=== PATIENT | female | born 1990 | race Caucasian/White ===

== ENCOUNTER 2017-06-29 17:02 | Emergency (ER) | payer MEDICAID ==
[2017-06-29 17:20] VITALS: BP 146/98
[2017-06-29] MEDS ORDERED: Sodium Chloride 0.9% 10 ML Syringe FLUSH PRN ×2 (17:39→19:20)
[2017-06-29] MEDS ORDERED: Ondansetron 4 MG/2 ML SDV IVPUSH ONE (17:40)
[2017-06-29] MEDS ORDERED: Ketorolac 30 MG/ML SDV IVPUSH ONE (17:40)
--- NOTE | 2017-06-29 17:43 | EDM.PDOC ---
ED HPI GENERAL MEDICAL PROBLEM - General Chief Complaint: Gastrointestinal Problem Stated Complaint: RT SIDE ABD PAIN UNDER RIBS Time Seen by Provider: 06/29/17 17:30 Source of Information: Reports: Patient History Limitations: Reports: No Limitations - History of Present Illness INITIAL COMMENTS - FREE TEXT/NARRATIVE: Magui is an otherwise healthy 27-year-old female who presents to the emergency department today with complaints of right upper quadrant pain that has been progressive over the last few days. Patient reports the pain increases dramatically after she gets done eating, she does endorse nausea but denies any vomiting. Patient denies any diarrhea or hematochezia. Patient denies any fever but does report feeling mildly lightheaded at times patient has had her tubes tied as well as a ablation and does not get her period. Patient denies any dysuria or blood in urine. Onset: Gradual Duration: Day(s): (5) - Related Data Allergies Allergy/AdvReac Type Severity Reaction Status Date / Time No Known Allergies Allergy Verified 06/29/17 17:23 Home Meds: Home Meds NK [No Known Home Meds] 06/29/17 [History] Past Medical History Immunologic History: Reports: Other (See Below) Other Immunologic History: hep c - Past Surgical History Female Surgical History: Reports: Tubal Ligation Social & Family History - Tobacco Use Smoking Status *Q: Current Every Day Smoker Years of Tobacco use: 4 Packs/Tins Daily: 0.5 ED ROS GENERAL - Review of Systems Review Of Systems: ROS reveals no pertinent complaints other than HPI. ED EXAM, GI/ABD - Physical Exam Exam: See Below Exam Limited By: No Limitations General Appearance: Alert, WD/WN, Mild Distress (Secondary to pain) Throat/Mouth: Normal Oropharynx Head: Atraumatic Neck: Normal Inspection Respiratory/Chest: No Respiratory Distress, Lungs Clear, Normal Breath Sounds Cardiovascular: Normal Peripheral Pulses, Regular Rate, Rhythm, No Murmur GI/Abdominal Exam: Normal Bowel Sounds, Soft, Tender (Right upper quadrant positive Heaton sign) Back Exam: Normal Inspection Extremities: Normal Inspection, Normal Range of Motion, Non-Tender Neurological: Alert, Oriented, CN II-XII Intact Psychiatric: Normal Affect, Normal Mood Skin Exam: Warm, Dry, Intact Lymphatic: No Adenopathy Course - Vital Signs Last Recorded V/S: Last Vital Signs Temp 36.1 C 08/12/17 17:32 Pulse 93 06/29/17 17:32 Resp 14 06/29/17 17:32 BP 146/98 H 06/29/17 17:32 Pulse Ox 99 06/29/17 17:32 Magui is an otherwise healthy 27-year-old female who presents to the emergency Department today with complaints of right upper quadrant pain that has been progressive for the last week, becomes worse any time she eats. Patient denies any trauma or injury. Patient denies any fever or chills, she does endorse nausea and near vomiting. Please refer to history of present illness and focused exam. Concerns on exam with positive Heaton sign for an acute cholecystitis. Peripheral IV was established and patient was given IV Zofran and Dilaudid for pain with improvement in her symptoms. Ultrasound was obtained of gallbladder and is negative. CT scan was obtained and is also negative. Blood work today was reassuring, urinalysis is negative for infection. I do not have a clear etiology for patient's pain today but given hx and exam still feel her gallbladder could be playing a role. I discussed findings of today's exam and test results with patient, I feel she is stable to be discharged home, she is feeling better here, I will send her home with Zofran for nausea and [place] for pain, encouraged her to stick to a low -fat diet and follow up with primary care in the next week. If patient continues to have symptoms she likely will need an outpatient HIDA scan to further evaluate her source of pain. Reasons to return to the emergency department were discussed in detail, patient is agreeable to plan of care and was discharged in stable condition with her mom driving. - Orders/Labs/Meds Orders: Active Orders 24 hr Category Date Time Status Peripheral IV Care [RC] . DIRECTED Care 06/29/17 17:39 Active Abdomen Ltd [US] Stat Exams 06/29/17 17:40 Taken Abdomen Pelvis w Cont [CT] Stat Exams 06/29/17 19:16 Taken HYDROmorphone [Dilaudid] Med 06/29/17 20:09 Once 0.5 mg IVPUSH ONETIME ONE Sodium Chloride 0.9% [Saline Flush] Med 06/29/17 17:39 Active 10 ml FLUSH ASDIRECTED PRN Peripheral IV Insertion Adult [OM.PC] Routine Oth 06/29/17 17:39 Ordered Medication Orders Sodium Chloride (Saline Flush) 10 ml FLUSH ASDIRECTED PRN PRN Reason: Keep Vein Open Last Admin: 06/29/17 18:02 Dose: 10 ml Labs: Laboratory Tests 06/29/17 06/29/17 06/29/17 Range/Units 17:51 17:51 18:08 WBC 7.1 (4.5-11.0) K/uL RBC 4.76 (3.30-5.50) M/uL Hgb 15.4 H (12.0-15.0) g/dL Hct 43.2 (36.0-48.0) % MCV 91 (80-98) fL MCH 32 H (27-31) pg MCHC 36 (32-36) % Plt Count 227 (150-400) K/uL Neut % (Auto) 58 (36-66) % Lymph % (Auto) 29 (24-44) % [place] % (Auto) 8 H (2-6) % Eos % (Auto) 3 (2-4) % Baso % (Auto) 2 H (0-1) % Sodium 142 (140-148) mmol/L Potassium 4.2 (3.6-5.2) mmol/L Chloride 106 (100-108) mmol/L Carbon Dioxide 31 (21-32) mmol/L Anion Gap 4.6 L (5.0-14.0) mmol/L BUN 18 (7-18) mg/dL Creatinine 0.9 (0.6-1.0) mg/dL Est Cr Clr Drug Dosing 89.69 mL/min Estimated GFR (MDRD) > 60 (>60) Glucose 104 (74-106) mg/dL Calcium 8.5 (8.5-10.1) mg/dL Total Bilirubin 0.5 (0.2-1.0) mg/dL AST 37 (15-37) U/L ALT 66 (12-78) U/L Alkaline Phosphatase 56 (46-116) U/L Total Protein 7.7 (6.4-8.2) g/dL Albumin 3.8 (3.4-5.0) g/dL Globulin 3.9 H (2.3-3.5) g/dL Albumin/Globulin Ratio 1.0 L (1.2-2.2) Lipase 126 (73-393) U/L Urine Color Yellow Urine Appearance Clear Urine pH 5.0 (4.5-8.0) Ur Specific [place] 1.020 (1.008-1.030) Urine Protein Negative (NEGATIVE) mg/dL Urine Glucose (UA) Normal (NEGATIVE) mg/dL Urine Ketones Negative (NEGATIVE) mg/dL Urine Occult Blood Negative (NEGATIVE) Urine Nitrite Negative (NEGATIVE) Urine Bilirubin Negative (NEGATIVE) Urine Urobilinogen Normal (NORMAL) mg/dL Ur Leukocyte Esterase Negative (NEGATIVE) Urine RBC 0-5 (0-5) Urine WBC 0-5 (0-5) Ur Epithelial Cells Moderate Amorphous Sediment Few Urine Bacteria Few Urine Mucus Few Meds: Medications Generic Name Dose Route Start Last Admin Trade Name Freq PRN Reason Stop Dose Admin Sodium Chloride 10 ml 06/29/17 17:39 06/29/17 18:02 Saline Flush FLUSH 10 ml ASDIRECTED PRN Administration Keep Vein Open Discontinued Medications Generic Name Dose Route Start Last Admin Trade Name Freq PRN Reason Stop Dose Admin Hydromorphone HCl 0.5 mg 06/29/17 17:40 06/29/17 18:02 Dilaudid IVPUSH 06/29/17 17:41 0.5 mg ONETIME ONE Administration Sodium Chloride 70 mls @ 3 mls/sec 06/29/17 19:20 06/29/17 19:31 Normal Saline IV 06/29/17 19:21 3 mls/sec ASDIRECTED ONE Administration Iopamidol 100 ml 06/29/17 19:20 06/29/17 19:30 Isovue-300 (61%) IV 06/29/17 19:21 100 ml . DIRECTED PRN Administration RADIOLOGY EXAM Ketorolac Tromethamine 30 mg 06/29/17 17:40 06/29/17 18:01 Toradol IVPUSH 06/29/17 17:41 30 mg ONETIME ONE Administration Ondansetron HCl 4 mg 06/29/17 17:40 06/29/17 18:01 Zofran IVPUSH 06/29/17 17:41 4 mg ONETIME ONE Administration Sodium Chloride 10 ml 06/29/17 19:20 06/29/17 19:30 Saline Flush FLUSH 06/29/17 19:21 10 ml . DIRECTED PRN Administration [id number] EXAM Departure - Departure Time of Disposition: 20:30 Disposition: Home, Self-Care 01 Condition: Good Clinical Impression: Right upper quadrant abdominal pain - Discharge Information Instructions: Abdominal Pain, Adult, [id number] Forms: ED Department Discharge Additional Instructions: Magui, You can take ibuprofen for pain, 600 mg every 6 hours. I have prescribed you [place] which is a narcotic for severe pain, do not drive if you take this. Please follow up in clinic this week, you may need a HIDA scan if pain continues. Stick to a low fat diet for now. If you develop any worsening symptoms/concerns please return to the ED. - My Orders Last 24 Hours: My Active Orders 06/29/17 17:39 Peripheral IV Care [RC] . DIRECTED Sodium Chloride 0.9% [Saline Flush] 10 ml FLUSH ASDIRECTED PRN Peripheral IV Insertion Adult [OM.PC] Routine 06/29/17 17:40 Abdomen Ltd [US] Stat 06/29/17 19:16 Abdomen Pelvis w Cont [CT] Stat 06/29/17 20:09 HYDROmorphone [Dilaudid] 0.5 mg IVPUSH ONETIME ONE - Assessment/Plan Last 24 Hours: My Active Orders 06/29/17 17:39 Peripheral IV Care [RC] . DIRECTED Sodium Chloride 0.9% [Saline Flush] 10 ml FLUSH ASDIRECTED PRN Peripheral IV Insertion Adult [OM.PC] Routine 06/29/17 17:40 Abdomen Ltd [US] Stat 06/29/17 19:16 Abdomen Pelvis w Cont [CT] Stat 06/29/17 20:09 HYDROmorphone [Dilaudid] 0.5 mg IVPUSH ONETIME ONE
[2017-06-29] MEDS: HYDROmorphone 1 MG/ML Syringe IVPUSH ONE ×2 (18:02→20:21)
[2017-06-29] MEDS ORDERED: Iopamidol 612 MG/ML 100 ML Bottle IV PRN (19:20)
[2017-06-29] MEDS ORDERED: HYDROmorphone 0.5 MG/0.5 ML Syringe IVPUSH ONE (20:09)
--- NOTE | 2017-07-01 11:59 | US ---
Abdomen Ltd INDICATION: RUQ pain after eating COMPARISON: None FINDINGS: Liver unremarkable in appearance. No gallstones or gallbladder wall thickening. No biliary distention. Abdominal aorta and inferior vena cava are unremarkable where visualized. Visualized portions of the pancreas are unremarkable. Right kidney unremarkable. No calculi or hydronephrosis. No ascites seen in the right upper quadrant. IMPRESSION: Negative ultrasound right upper quadrant.
== END 2017-06-29 20:23 | disposition home or self-care (01) ==
LOC: JP.ED 17:02
DX: R10.11 Right upper quadrant pain (principal); F17.210 Nicotine dependence, cigarettes, uncomplicated; Z98.51 Tubal ligation status
CPT/HCPCS: 36415; 74177; 76705; 80053; 81001; 83690; 85025; 96374; 96375; 99284; J1170; J1885; J2405; J7030; J7050; Q9967

== ENCOUNTER 2018-12-10 17:10 | Emergency (ER) | payer MEDICAID ==
[2018-12-10 18:16] VITALS: BP 122/85
[2018-12-10] MEDS ORDERED: Phenazopyridine 95 MG Tab PO ONE (18:56)
[2018-12-10] MEDS ORDERED: HYDROmorphone 0.5 MG/0.5 ML Syringe IVPUSH ONE (18:57)
[2018-12-10] MEDS ORDERED: Ondansetron 4 MG/2 ML SDV IVPUSH ONE (18:57)
[2018-12-10] MEDS ORDERED: Sodium Chloride 0.9% 1,000 ML IV SCH (19:00)
--- NOTE | 2018-12-10 20:09 | EDM.PDOC ---
ED HPI GENERAL MEDICAL PROBLEM - General Chief Complaint: Genitourinary Problem Stated Complaint: RIGHT SIDE PAIN,BLOOD IN URINE Time Seen by Provider: 12/10/18 20:05 Source of Information: Reports: Patient, Family History Limitations: Reports: No Limitations - History of Present Illness INITIAL COMMENTS - FREE TEXT/NARRATIVE: pt has acute pain in the rt flank area. When she voided once it looked like there was blood She has a constant urge to void. Her pain is very severe at times. She does nt have a history of a stone. Onset: Today, Gradual Duration: Hour(s): Location: Reports: Abdomen, Other ( rt flank pain) Quality: Reports: Burning, Sharp Associated Symptoms: Reports: Nausea/Vomiting, Other (pain in the rt flank) Lower Abdominal Pain Score (Numeric/FACES): 9 - Related Data Allergies Allergy/AdvReac Type Severity Reaction Status Date / Time No Known Allergies Allergy Verified 06/29/17 17:23 Home Meds: Home Meds NK [No Known Home Meds] 06/29/17 [History] Past Medical History HEENT History: Reports: Impaired Vision Genitourinary History: Reports: UTI, Recurrent Immunologic History: Reports: Other (See Below) Other Immunologic History: hep c - Past Surgical History Female Surgical History: Reports: Tubal Ligation Social & Family History - Tobacco Use Smoking Status *Q: Never Smoker - Caffeine Use Caffeine Use: Reports: Coffee - Recreational Drug Use Recreational Drug Use: Yes Drug Use in Last 12 Months: No ED ROS GENERAL - Review of Systems Review Of Systems: See Below Constitutional: Reports: No Symptoms HEENT: Reports: No Symptoms Respiratory: Reports: No Symptoms Cardiovascular: Reports: No Symptoms Endocrine: Reports: No Symptoms GI/Abdominal: Reports: Abdominal Pain, Other ( rt flank pain) : Reports: Dysuria, Flank Pain, Frequency Musculoskeletal: Reports: No Symptoms Skin: Reports: No Symptoms Neurological: Reports: No Symptoms ED EXAM, GI/ABD - Physical Exam Exam: See Below Text/Narrative:: pt arrived having increased pain in the rt flank and she is having dysuria. Exam Limited By: No Limitations General Appearance: Alert, Anxious, Moderate Distress Ears: Normal TMs Nose: Normal Inspection Throat/Mouth: Normal Inspection Head: Atraumatic Neck: Normal Inspection Respiratory/Chest: No Respiratory Distress Cardiovascular: Regular Rate, Rhythm GI/Abdominal Exam: Other (pt has definite flank tenderness) (Female) Exam: Deferred Rectal (Female) Exam: Deferred Back Exam: Normal Inspection Extremities: Normal Inspection Neurological: Alert, Oriented Psychiatric: Anxious Course - Vital Signs Last Recorded V/S: Last Vital Signs Temp 36.8 C 12/10/18 18:18 Pulse 79 12/10/18 18:18 Resp 14 12/10/18 18:18 BP 122/85 12/10/18 18:18 Pulse Ox 96 12/10/18 18:18 - Orders/Labs/Meds Orders: Active Orders 24 hr Category Date Time Status Dietary Supplements [RC] BIDMEALS Care 12/10/18 23:02 Ordered Abdomen Pelvis wo Cont [CT] Stat Exams 12/10/18 20:03 Taken CULTURE URINE [RM] Stat Lab 12/10/18 22:55 Ordered Sodium Chloride 0.9% [Normal Saline] 1,000 ml Med 12/10/18 19:00 Active IV ASDIRECTED cefTRIAXone [Rocephin] 1 gm Med 12/10/18 23:02 Ordered Sodium Chloride 0.9% [Normal Saline] 50 ml IV ONETIME Medication Orders Sodium Chloride (Normal Saline) 1,000 mls @ 999 mls/hr IV ASDIRECTED LIBRETY Last Admin: 12/10/18 20:34 Dose: 999 mls/hr Ceftriaxone Sodium 1 gm/ (Sodium Chloride) 50 mls @ 100 mls/hr IV ONETIME ONE Stop: 12/10/18 23:31 Labs: Laboratory Tests 12/10/18 12/10/18 12/10/18 Range/Units 18:27 18:57 18:57 WBC 5.5 (4.5-11.0) K/uL RBC 4.57 (3.30-5.50) M/uL Hgb 14.3 (12.0-15.0) g/dL Hct 41.8 (36.0-48.0) % MCV 92 (80-98) fL MCH 31 (27-31) pg MCHC 34 (32-36) % Plt Count 218 (150-400) K/uL Neut % (Auto) 45 (36-66) % Lymph % (Auto) 42 (24-44) % [place] % (Auto) 10 H (2-6) % Eos % (Auto) 3 (2-4) % Baso % (Auto) 1 (0-1) % Sodium 140 (140-148) mmol/L Potassium 3.8 (3.6-5.2) mmol/L Chloride 103 (100-108) mmol/L Carbon Dioxide 28 (21-32) mmol/L Anion Gap 9.1 (5.0-14.0) mmol/L BUN 8 D (7-18) mg/dL Creatinine 0.8 (0.6-1.0) mg/dL Est Cr Clr Drug Dosing 99.99 mL/min Estimated GFR (MDRD) > 60 (>60) Glucose 86 (74-106) mg/dL Calcium 9.1 (8.5-10.1) mg/dL Total Bilirubin 0.6 (0.2-1.0) mg/dL AST 37 (15-37) U/L ALT 66 (12-78) U/L Alkaline Phosphatase 54 (46-116) U/L C-Reactive Protein (0.0-0.3) mg/dL Total Protein 7.3 (6.4-8.2) g/dL Albumin 3.6 (3.4-5.0) g/dL Globulin 3.7 H (2.3-3.5) g/dL Albumin/Globulin Ratio 1.0 L (1.2-2.2) Urine Color Yellow Urine Appearance Clear Urine pH 7.0 (4.5-8.0) Ur Specific [place] 1.010 (1.008-1.030) Urine Protein Negative (NEGATIVE) mg/dL Urine Glucose (UA) Normal (NEGATIVE) mg/dL Urine Ketones Negative (NEGATIVE) mg/dL Urine Occult Blood Negative (NEGATIVE) Urine Nitrite Negative (NEGATIVE) Urine Bilirubin Negative (NEGATIVE) Urine Urobilinogen Normal (NORMAL) mg/dL Ur Leukocyte Esterase Negative (NEGATIVE) Urine RBC Not seen (0-5) Urine WBC 0-5 (0-5) Ur Epithelial Cells Rare Amorphous Sediment Not seen Urine Bacteria Rare Urine Mucus Not seen 12/10/18 Range/Units 19:00 WBC (4.5-11.0) K/uL RBC (3.30-5.50) M/uL Hgb (12.0-15.0) g/dL Hct (36.0-48.0) % MCV (80-98) fL MCH (27-31) pg MCHC (32-36) % Plt Count (150-400) K/uL Neut % (Auto) (36-66) % Lymph % (Auto) (24-44) % [place] % (Auto) (2-6) % Eos % (Auto) (2-4) % Baso % (Auto) (0-1) % Sodium (140-148) mmol/L Potassium (3.6-5.2) mmol/L Chloride (100-108) mmol/L Carbon Dioxide (21-32) mmol/L Anion Gap (5.0-14.0) mmol/L BUN (7-18) mg/dL Creatinine (0.6-1.0) mg/dL Est Cr Clr Drug Dosing mL/min Estimated GFR (MDRD) (>60) Glucose (74-106) mg/dL Calcium (8.5-10.1) mg/dL Total Bilirubin (0.2-1.0) mg/dL AST (15-37) U/L ALT (12-78) U/L Alkaline Phosphatase (46-116) U/L C-Reactive Protein 0.08 (0.0-0.3) mg/dL Total Protein (6.4-8.2) g/dL Albumin (3.4-5.0) g/dL Globulin (2.3-3.5) g/dL Albumin/Globulin Ratio (1.2-2.2) Urine Color Urine Appearance Urine pH (4.5-8.0) Ur Specific [place] (1.008-1.030) Urine Protein (NEGATIVE) mg/dL Urine Glucose (UA) (NEGATIVE) mg/dL Urine Ketones (NEGATIVE) mg/dL Urine Occult Blood (NEGATIVE) Urine Nitrite (NEGATIVE) Urine Bilirubin (NEGATIVE) Urine Urobilinogen (NORMAL) mg/dL Ur Leukocyte Esterase (NEGATIVE) Urine RBC (0-5) Urine WBC (0-5) Ur Epithelial Cells Amorphous Sediment Urine Bacteria Urine Mucus Meds: Medications Generic Name Dose Route Start Last Admin Trade Name Freq PRN Reason Stop Dose Admin Sodium Chloride 1,000 mls @ 999 mls/hr 12/10/18 19:00 12/10/18 20:34 Normal Saline IV 999 mls/hr ASDIRECTED LIBERTY Administration Ceftriaxone Sodium 1 gm/ 50 mls @ 100 mls/hr 12/10/18 23:02 Sodium Chloride IV 01/23/19 23:31 ONETIME ONE Discontinued Medications Generic Name Dose Route Start Last Admin Trade Name Bg PRN Reason Stop Dose Admin Hydromorphone HCl 0.5 mg 12/10/18 18:57 12/10/18 20:34 Dilaudid IVPUSH 12/10/18 18:58 0.5 mg ONETIME ONE Administration Ketorolac Tromethamine 30 mg 12/10/18 23:01 Toradol IVPUSH 12/10/18 23:02 ONETIME ONE Magnesium Citrate 296 ml 12/10/18 23:08 Citrate Of Magnesia PO 12/10/18 23:09 ONETIME ONE Ondansetron HCl 4 mg 12/10/18 18:57 12/10/18 20:34 Zofran IVPUSH 12/10/18 18:58 4 mg ONETIME ONE Administration Phenazopyridine HCl 190 mg 12/10/18 18:56 12/10/18 20:34 Urinary Pain Relief PO 12/10/18 18:57 190 mg ONETIME ONE Administration - Re-Assessments/Exams Free Text/Narrative Re-Assessment/Exam: 12/10/18 23:11 iv fluids were given to the pt. A urine was obtained which did not reveal alot of bacteria or wbcs. She continued to be uncomfortable and she was given pyridium and dilaudid which helped. A decision was made to obtaine a cat scan of the abdoman which was neg except she had a thickened bladder wall which could be from a cystitis. Her urine was cultured. She also looked like she was very constipated. She did have a stool today. She was given pyrridium and rocephen iv. Departure - Departure Time of Disposition: 23:02 Disposition: Home, Self-Care 01 Condition: Fair Clinical Impression: UTI (urinary tract infection), Constipation - Discharge Information Referrals: PCP,None [Primary Care Provider] - Forms: ED Department Discharge Care Plan Goals: CONTINUE TO PUSH FLUIDS, CIPRO 500MG BID FOR 1 WEEK, PYRIDIUM 200MG TID FOR THE NEXT 2 DAYS, MAG CITRATE 1 BOTTLE NOW, TORODOL 10MG Q6H PRN FOR PAIN. - My Orders Last 24 Hours: My Active Orders 12/10/18 19:00 Sodium Chloride 0.9% [Normal Saline] 1,000 ml IV ASDIRECTED 12/10/18 20:03 Abdomen Pelvis wo Cont [CT] Stat 12/10/18 22:55 CULTURE URINE [RM] Stat 12/10/18 23:02 Dietary Supplements [RC] BIDMEALS cefTRIAXone [Rocephin] 1 gm Sodium Chloride 0.9% [Normal Saline] 50 ml IV ONETIME - Assessment/Plan Last 24 Hours: My Active Orders 12/10/18 19:00 Sodium Chloride 0.9% [Normal Saline] 1,000 ml IV ASDIRECTED 12/10/18 20:03 Abdomen Pelvis wo Cont [CT] Stat 12/10/18 22:55 CULTURE URINE [RM] Stat 12/10/18 23:02 Dietary Supplements [RC] BIDMEALS cefTRIAXone [Rocephin] 1 gm Sodium Chloride 0.9% [Normal Saline] 50 ml IV ONETIME
[2018-12-10] MEDS ORDERED: Ketorolac 30 MG/ML SDV IVPUSH ONE (23:01)
[2018-12-10] MEDS ORDERED: cefTRIAXone 1 GM in Sodium Chloride 0.9% 50 ML IV ONE (23:02)
[2018-12-10] MEDS ORDERED: Magnesium Citrate Solution 296 ML Bottle PO ONE (23:08)
== END 2018-12-10 23:47 | disposition home or self-care (01) ==
LOC: JP.ED 17:10
DX: N39.0 Urinary tract infection, site not specified (principal); K59.00 Constipation, unspecified
CPT/HCPCS: 36415; 74176; 80053; 81001; 85025; 86140; 87086; 96361; 96365; 96375; 99284; A9270; J0696; J1170; J1885; J2405; J7030; J7050

== ENCOUNTER 2019-08-18 18:26 | Emergency (ER) | payer MEDICAID ==
[2019-08-18 18:51] VITALS: BP 136/75; PULSE 84
[2019-08-18] MEDS ORDERED: Ondansetron 4 MG Tab.DIS PO ONE (19:30)
[2019-08-18] MEDS ORDERED: HYDROmorphone 1 MG/ML Syringe IM ONE ×2 (19:30→21:18)
[2019-08-18] MEDS ORDERED: Bupivacaine 0.25% 10 ML SDV INJECT ONE (20:27)
[2019-08-18] MEDS ORDERED: Bacitracin Oint 1 GM U/D Packet TOP ONE (22:43)
--- NOTE | 2019-08-18 22:49 | EDM.PDOC ---
ED HPI GENERAL MEDICAL PROBLEM - General Chief Complaint: Laceration Stated Complaint: LACERATION TO LEFT ARM Time Seen by Provider: 08/18/19 19:24 Source of Information: Reports: Patient History Limitations: Reports: No Limitations - History of Present Illness INITIAL COMMENTS - FREE TEXT/NARRATIVE: This lady was washing dishes and she dropped a glass or something which broke and lacerated her left wrist. This happened just prior to arrival. 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: Musculoskeletal History: Reports: Fracture Immunologic History: Reports: Other (See Below) Other Immunologic History: hep c - Infectious Disease History Infectious Disease History: Reports: Chicken Pox, Hepatitis C - Past Surgical History Female Surgical History: Reports: Tubal Ligation Social & Family History - Tobacco Use Smoking Status *Q: Current Every Day Smoker Years of Tobacco use: 10 Packs/Tins Daily: 1 - Caffeine Use Caffeine Use: Reports: Coffee - Recreational Drug Use Recreational Drug Use: No ED ROS GENERAL - Review of Systems Review Of Systems: ROS reveals no pertinent complaints other than HPI. ED EXAM, SKIN/RASH Exam: See Below Exam Limited By: No Limitations General Appearance: Alert, WD/WN, Mild Distress Extremities: Other (There is a laceration to the left wrist it's the anterior or palmar surface the ulnar half there is a laceration it's approximately 3 cm long it extends from the distal forearm distally and in the ulnar direction towards the crease of the wrist. It appears to be superficial however it's a actual superficial slicing type of laceration so it goes in the lateral or towards the thumb side of the wrist but never getting more than about 5 mm deep. So it's a single laceration with a flap. This does not penetrate down to any tendons or nerves or arteries. I did do an Alexandru's test prior to a full exam and is negative for any arterial compromise. There is full range of motion of the wrist and she does have good feeling to the fourth and fifth digits. There is some loss of sensation to the index and middle fingers but that is chronic due to previous injury) Course - Vital Signs Last Recorded V/S: Last Vital Signs Temp 36.4 C 08/18/19 19:14 Pulse 84 08/18/19 19:14 Resp 16 08/18/19 19:14 BP 136/75 08/18/19 19:14 Pulse Ox 97 08/18/19 19:14 - Orders/Labs/Meds Orders: Active Orders 24 hr Category Date Time Status Bacitracin [Bacitracin Oint 1 GM] Med 08/18/19 22:43 Once 1 dose TOP ONETIME ONE Meds: Medications Discontinued Medications Generic Name Dose Route Start Last Admin Trade Name Freq PRN Reason Stop Dose Admin Bupivacaine HCl 10 ml 08/18/19 20:27 08/18/19 20:38 Sensorcaine-Mpf 0.25% INJECT 08/18/19 20:28 10 ml ONETIME ONE Administration Hydromorphone HCl 1 mg 08/18/19 19:30 08/18/19 19:54 Dilaudid IM 08/18/19 19:31 1 mg ONETIME ONE Administration Hydromorphone HCl 1 mg 08/18/19 21:18 08/18/19 22:13 Dilaudid IM 08/18/19 21:19 1 mg ONETIME ONE Administration Ondansetron HCl 4 mg 08/18/19 19:30 08/18/19 19:54 Zofran Odt PO 08/18/19 19:31 4 mg ONETIME ONE Administration - Re-Assessments/Exams Free Text/Narrative Re-Assessment/Exam: 08/18/19 22:47 Procedure: Laceration repair. This patient did receive 2 injections of Dilaudid 1 mg widely apart and 1 mg of Ativan as well as 4 mg of Zofran. I did convince her to let me give her some subcutaneous bupivacaine and that was injected a total of about 7 mL and seems to have worked locally. The surrounding tissues were then scrubbed with a saline soaked sponge the wound was gently scrubbed with saline and lavaged. The flap was lifted and the area under the flap was inspected and lavaged with saline. It was inspected in a bloodless field and there is no damage to underlying structures. The wound was then closed in a simple running 5-0 nylon stitch getting a good cosmetic result. Bacitracin ointment was followed by a simple Telfa and gauze dressing. 08/18/19 22:50 Total length of laceration sutured was 3 cm Departure - Departure Time of Disposition: 22:49 Disposition: Home, Self-Care 01 Condition: Fair Clinical Impression: Laceration of wrist, left - Discharge Information Referrals: PCP,None [Primary Care Provider] - Additional Instructions: Remove the dressing on . Then every day remove the dressing wash with soap and water apply some antibiotic ointment and keep covered with a dressing. Watch for signs of infection then see your doctor in 10 days for suture removal. - My Orders Last 24 Hours: My Active Orders 08/18/19 22:43 Bacitracin [Bacitracin Oint 1 GM] 1 dose TOP ONETIME ONE - Assessment/Plan Last 24 Hours: My Active Orders 08/18/19 22:43 Bacitracin [Bacitracin Oint 1 GM] 1 dose TOP ONETIME ONE
== END 2019-08-18 22:55 | disposition home or self-care (01) ==
LOC: JP.ED 18:26
DX: S61.512A Laceration without foreign body of left wrist, initial encounter (principal); F17.210 Nicotine dependence, cigarettes, uncomplicated; W25.XXXA Contact with sharp glass, initial encounter
CPT/HCPCS: 12002; 96372; 99282; A9270; J1170; J3490

== ENCOUNTER 2020-04-02 16:31 | Emergency (ER) | payer MEDICAID ==
--- NOTE | 2020-04-02 17:26 | EDM.PDOC ---
ED HPI GENERAL MEDICAL PROBLEM - General Chief Complaint: Skin Complaint Stated Complaint: RASH ON RIGHT FOREARM Time Seen by Provider: 04/02/20 17:15 Source of Information: Reports: Patient History Limitations: Reports: No Limitations - History of Present Illness Onset: Other (Several Days ago ) Duration: Getting Worse Location: Reports: Upper Extremity, Right Quality: Reports: Burning, Other (Itching, swelling) Severity: Moderate Improves with: Reports: Medication (Took a single Benadryl this morning) Context: Reports: Other (Was working in her yard transplanting flowering plants and knows that she got into poison janet with her right arm) Associated Symptoms: Reports: No Other Symptoms. 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: Other (see below) (Oral Benadryl) - Related Data Allergies Allergy/AdvReac Type Severity Reaction Status Date / Time No Known Allergies Allergy Verified 04/02/20 16:57 Home Meds: Home Meds Amoxicillin 1 tab PO TID 04/02/20 [History] Past Medical History HEENT History: Reports: Impaired Vision Genitourinary History: Reports: Renal Disease, UTI, Recurrent HRBP History: Reports: Musculoskeletal History: Reports: Fracture Immunologic History: Reports: Other (See Below) Other Immunologic History: hep c - Infectious Disease History Infectious Disease History: Reports: Chicken Pox, Hepatitis C - Past Surgical History Female Surgical History: Reports: Tubal Ligation Social & Family History - Tobacco Use Smoking Status *Q: Current Every Day Smoker Years of Tobacco use: 15 Packs/Tins Daily: 0.5 - Caffeine Use Caffeine Use: Reports: Coffee ED ROS GENERAL - Review of Systems Review Of Systems: See Below Constitutional: Denies: Fever, Chills HEENT: Denies: Ear Discharge, Eye Discharge, Throat Pain, Throat Swelling Respiratory: Denies: Shortness of Breath, Wheezing Cardiovascular: Denies: Chest Pain GI/Abdominal: Denies: Nausea, Vomiting Musculoskeletal: Reports: No Symptoms Skin: Reports: Pruritis, Rash (Right middle arm with erythematous lesions), Erythema Neurological: Reports: No Symptoms Immunologic: Reports: Other (History of previous problems with poison janet). Denies: Anaphylaxis ED EXAM, SKIN/RASH Exam: See Below Exam Limited By: No Limitations General Appearance: Alert, WD/WN, No Apparent Distress Eye Exam: Bilateral Eye: Normal Inspection Ears: Normal External Exam Throat/Mouth: Normal Voice, No Airway Compromise Respiratory/Chest: No Respiratory Distress, Normal Breath Sounds Skin: Rash (Erythematous linear lesions right arm consistent with contact dermatitis. Several smaller circular erythematous lesions approximately consistent with satellite lesions.) Location, Skin: Upper Extremity, Right Characteristics: Linear, Urticarial, Erythematous Associated features: Warmth, Swelling, Induration, Inflammation. No: Crusting, Weeping Course - Vital Signs Text/Narrative:: Given a prescription for prednisone 20 mg tablets to dispense 10 and take 1 orally twice daily x5 days. Last Recorded V/S: Last Vital Signs Temp 36.6 C 04/02/20 17:03 Pulse 87 04/02/20 17:03 Resp 16 04/02/20 17:03 BP 128/88 04/02/20 17:03 Pulse Ox 95 04/02/20 17:03 Departure - Departure Time of Disposition: 17:25 Disposition: Home, Self-Care 01 Condition: Good Clinical Impression: Contact dermatitis - Discharge Information Instructions: Poison Janet Dermatitis Referrals: PCP,None [Primary Care Provider] - Forms: ED Department Discharge Additional Instructions: Is 1 tablet of prednisone orally twice a day x5 days. Continue using oral antihistamine for itching. Cool soaks to the area will also help. Avoid heat or hot tubs. Sepsis Event Note - Evaluation Sepsis Screening Result: No Definite Risk - Focused Exam Vital Signs: Vital Signs Temp Pulse Resp BP Pulse Ox 04/02/20 17:03 36.6 C 87 16 128/88 95 04/02/20 16:43 36.6 C 87 16 128/88 95 Date Exam was Performed: 04/02/20 Time Exam was Performed: 17:36
== END 2020-04-02 17:43 | disposition home or self-care (01) ==
LOC: JP.ED 16:31
CPT/HCPCS: 99282

== ENCOUNTER 2020-12-08 18:38 | Emergency (ER) | payer MEDICAID ==
[2020-12-08 19:18] VITALS: BP 149/92; PULSE 87
[2020-12-08] MEDS ORDERED: Ketorolac 60 MG/2 ML SDV IM ONE (19:32)
--- NOTE | 2020-12-08 19:34 | EDM.PDOC ---
ED HPI GENERAL MEDICAL PROBLEM - General Chief Complaint: General Stated Complaint: MEDICAL Time Seen by Provider: 12/08/20 19:17 Source of Information: Reports: Patient, Family, Old Records, RN Notes Reviewed - History of Present Illness INITIAL COMMENTS - FREE TEXT/NARRATIVE: 30-year-old female presents emergency department a complaint of foul-smelling urine also some pelvic pressure and right sided kidney pain she states it has been going on for about a week but has progressively gotten worse, no fevers no nausea vomiting does have a history of pyelonephritis pelvic pain Pain Score (Numeric/FACES): 9 - Related Data Allergies Allergy/AdvReac Type Severity Reaction Status Date / Time No Known Allergies Allergy Verified 12/08/20 18:57 Home Meds: Home Meds Ibuprofen [Motrin] 600 mg PO ASDIRECTED PRN 12/08/20 [History] metroNIDAZOLE [metroNIDAZOLE 0.75% Gel] 1 applic TOP ASDIRECTED 12/08/20 [History] Past Medical History HEENT History: Reports: Impaired Vision Genitourinary History: Reports: Renal Disease, UTI, Recurrent 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: Musculoskeletal History: Reports: Fracture Immunologic History: Reports: Other (See Below) Other Immunologic History: hep c (not currently active) - Infectious Disease History Infectious Disease History: Reports: Chicken Pox, Hepatitis C - Past Surgical History Female Surgical History: Reports: Tubal Ligation, Other (See Below) Other Female Surgeries/Procedures: cysts on ovaries unknown what side or if on both sides Musculoskeletal Surgical History: Reports: Other (See Below) Other Musculoskeletal Surgeries/Procedures:: left 1st digit Social & Family History - Tobacco Use Tobacco Use Status *Q: Current Every Day Tobacco User Years of Tobacco use: 10 Packs/Tins Daily: 0.5 - Caffeine Use Caffeine Use: Reports: Coffee - Recreational Drug Use Recreational Drug Use: No ED ROS GENERAL - Review of Systems Review Of Systems: See Below Constitutional: Denies: Fever, Chills HEENT: Reports: No Symptoms Respiratory: Reports: No Symptoms Cardiovascular: Reports: No Symptoms GI/Abdominal: Denies: Nausea, Vomiting : Reports: Dysuria, Flank Pain ED EXAM, GENERAL - Physical Exam Exam: See Below Exam Limited By: No Limitations General Appearance: Alert, WD/WN, No Apparent Distress Respiratory/Chest: No Respiratory Distress, Lungs Clear, Normal Breath Sounds, No Accessory Muscle Use, Chest Non-Tender Cardiovascular: Regular Rate, Rhythm, No Murmur GI/Abdominal: Soft, Non-Tender Back Exam: Normal Inspection, Full Range of Motion, CVA Tenderness (R). No: CVA Tenderness (L) Course - Vital Signs Last Recorded V/S: Last Vital Signs Temp 97.0 F 12/08/20 19:18 Pulse 87 12/08/20 19:18 Resp 16 12/08/20 19:18 BP 149/92 H 12/08/20 19:18 Pulse Ox 96 12/08/20 19:18 - Orders/Labs/Meds Orders: Active Orders 24 hr Category Date Time Status CULTURE URINE [RM] Urgent Lab 12/08/20 20:53 Ordered Labs: Laboratory Tests 12/08/20 12/08/20 12/08/20 Range/Units 19:40 19:40 19:40 WBC 5.5 (4.5-11.0) K/uL RBC 4.48 (3.30-5.50) M/uL Hgb 14.1 (12.0-15.0) g/dL Hct 41.9 (36.0-48.0) % MCV 94 (80-98) fL MCH 32 H (27-31) pg MCHC 34 (32-36) % Plt Count 264 (150-400) K/uL Neut % (Auto) 52 (36-66) % Lymph % (Auto) 39 (24-44) % [place] % (Auto) 9 H (2-6) % Eos % (Auto) 0 L (2-4) % Baso % (Auto) 1 (0-1) % Sodium 139 L (140-148) mmol/L Potassium 4.0 (3.6-5.2) mmol/L Chloride 104 (100-108) mmol/L Carbon Dioxide 28 (21-32) mmol/L Anion Gap 11.0 (5.0-14.0) mmol/L BUN 7 (7-18) mg/dL Creatinine 0.8 (0.6-1.0) mg/dL Est Cr Clr Drug Dosing 98.18 mL/min Estimated GFR (MDRD) > 60 (>60) Glucose 85 (74-106) mg/dL Lactic Acid 0.6 (0.4-2.0) mmol/L Calcium 7.9 L (8.5-10.1) mg/dL Total Bilirubin 0.3 (0.2-1.0) mg/dL AST 14 L (15-37) U/L ALT 19 (12-78) U/L Alkaline Phosphatase 64 (46-116) U/L Total Protein 6.6 (6.4-8.2) g/dL Albumin 3.4 (3.4-5.0) g/dL Globulin 3.2 (2.3-3.5) g/dL Albumin/Globulin Ratio 1.1 L (1.2-2.2) Lipase 83 (73-393) U/L Urine Color (YELLOW) Urine Appearance (CLEAR) Urine pH (5.0-8.0) Ur Specific [place] (1.008-1.030) Urine Protein (NEGATIVE) mg/dL Urine Glucose (UA) (NEGATIVE) mg/dL Urine Ketones (NEGATIVE) mg/dL Urine Occult Blood (NEGATIVE) Urine Nitrite (NEGATIVE) Urine Bilirubin (NEGATIVE) Urine Urobilinogen (0.2-1.0) EU/dL Ur Leukocyte Esterase (NEGATIVE) Urine RBC (0-5) Urine WBC (0-5) Ur Epithelial Cells Amorphous Sediment Urine Bacteria Urine Mucus Urine HCG, Qual 12/08/20 12/08/20 Range/Units 20:05 20:05 WBC (4.5-11.0) K/uL RBC (3.30-5.50) M/uL Hgb (12.0-15.0) g/dL Hct (36.0-48.0) % MCV (80-98) fL MCH (27-31) pg MCHC (32-36) % Plt Count (150-400) K/uL Neut % (Auto) (36-66) % Lymph % (Auto) (24-44) % [place] % (Auto) (2-6) % Eos % (Auto) (2-4) % Baso % (Auto) (0-1) % Sodium (140-148) mmol/L Potassium (3.6-5.2) mmol/L Chloride (100-108) mmol/L Carbon Dioxide (21-32) mmol/L Anion Gap (5.0-14.0) mmol/L BUN (7-18) mg/dL Creatinine (0.6-1.0) mg/dL Est Cr Clr Drug Dosing mL/min Estimated GFR (MDRD) (>60) Glucose (74-106) mg/dL Lactic Acid (0.4-2.0) mmol/L Calcium (8.5-10.1) mg/dL Total Bilirubin (0.2-1.0) mg/dL AST (15-37) U/L ALT (12-78) U/L Alkaline Phosphatase (46-116) U/L Total Protein (6.4-8.2) g/dL Albumin (3.4-5.0) g/dL Globulin (2.3-3.5) g/dL Albumin/Globulin Ratio (1.2-2.2) Lipase (73-393) U/L Urine Color Yellow (YELLOW) Urine Appearance Clear (CLEAR) Urine pH 7.0 (5.0-8.0) Ur Specific [place] 1.020 (1.008-1.030) Urine Protein Negative (NEGATIVE) mg/dL Urine Glucose (UA) Negative (NEGATIVE) mg/dL Urine Ketones Negative (NEGATIVE) mg/dL Urine Occult Blood Negative (NEGATIVE) Urine Nitrite Positive H (NEGATIVE) Urine Bilirubin Negative (NEGATIVE) Urine Urobilinogen 0.2 (0.2-1.0) EU/dL Ur Leukocyte Esterase Negative (NEGATIVE) Urine RBC Not seen (0-5) Urine WBC 0-5 (0-5) Ur Epithelial Cells Few Amorphous Sediment Not seen Urine Bacteria Few Urine Mucus Not seen Urine HCG, Qual Negative Meds: Medications Discontinued Medications Generic Name Dose Route Start Last Admin Trade Name Freq PRN Reason Stop Dose Admin Ketorolac Tromethamine 60 mg 12/08/20 19:32 12/08/20 20:49 Toradol IM 12/08/20 19:33 60 mg ONETIME ONE Administration Departure - Departure Time of Disposition: 20:57 Disposition: Home, Self-Care 01 Condition: Fair Clinical Impression: Urinary tract infection Qualifiers: Urinary tract infection type: acute cystitis Hematuria presence: without hematuria Qualified Code(s): N30.00 - Acute cystitis without hematuria - Discharge Information Instructions: Urinary Tract Infection, Adult Referrals: Dorothea Lopez CNM [Primary Care Provider] - Forms: ED Department Discharge Additional Instructions: Take full course of antibiotics, please followup with your primary care provider in 5-7 days if not better, please call return to the emergency department with worsening of symptoms. Sepsis Event Note (ED) - Evaluation Sepsis Screening Result: No Definite Risk - Focused Exam Vital Signs: Vital Signs Temp Pulse Resp BP Pulse Ox 12/08/20 19:18 97.0 F 87 16 149/92 H 96 12/08/20 19:15 97.0 F 87 16 149/92 H 96 - My Orders Last 24 Hours: My Active Orders 12/08/20 20:53 CULTURE URINE [RM] Urgent - Assessment/Plan Last 24 Hours: My Active Orders 12/08/20 20:53 CULTURE URINE [RM] Urgent Plan: Assessment Acuity = acute Site and laterality = urinary tract infection Etiology = probable bacterial cause Manifestations = none Location of injury = Home Lab values = CBC CMP unremarkable lactic acid within normal limits urinalysis does have positive nitrates few bacteria cultures pending Plan Elected to treat empirically Bactrim DS 1 tab p.o. be ID [id number] follow-up primary care in 5 to 7 days if not better This note was dictated using [employer] voice recognition software please call with any questions on syntax or grammar.
== END 2020-12-08 21:19 | disposition home or self-care (01) ==
LOC: JP.ED 18:38
DX: N30.00 Acute cystitis without hematuria (principal); Z72.0 Tobacco use
CPT/HCPCS: 36415; 80053; 81001; 81025; 83605; 83690; 85025; 87086; 96372; 99284; J1885